=== PATIENT | male | born 1995 | race Caucasian/White ===

== ENCOUNTER 2018-09-20 09:24 | Emergency (ER) | payer BC, OTHER ==
[~2018-09-20] VITALS: Ht 177.8 cm; Wt 77.1 kg
--- OUTSIDE RECORDS SUMMARY | 2018-09-20 09:39 | XMS REPORT ---
Author Author JOEY NICOLAS Organization [facility] Address [address] [place] [address] Care Team Providers Care Mixer Wet Pour Name Role Phone JOEY NICOLAS Unavailable PROBLEMS Unknown Problems ALLERGIES No Known Allergies ENCOUNTERS Encounter Location Date Diagnosis [facility] [address] [facility] [id number] [address] 04 Apr, 2018 Closed nondisplaced fracture of base of fifth metacarpal bone of right hand, initial encounter S62.346A and Closed nondisplaced fracture of base of fourth metacarpal bone of right hand, initial encounter S62.344A [facility] [address] [facility] [address] [id number] [address] Mar, Right hand pain M79.641 and Swelling of right hand M79.89 IMMUNIZATIONS No Known Immunizations SOCIAL HISTORY Never Assessed REASON FOR VISIT fell down outside 8 days ago et had swelling et pain in right hand. also reports his pinky et ring finger hurt on this hand also. [email or web address] PLAN OF CARE Activity Details Follow Up Needs appt with Pollo Ramirez first available in 6 days. Reason: VITAL SIGNS Height 69 in 2018-04-08 Weight 177 lbs 2018-04-08 Temperature 98.9 degrees Fahrenheit 2018-04-08 Heart Rate 88 bpm 2018-04-08 Respiratory Rate 20 2018-04-08 BMI 26.14 kg/m2 2018-04-08 Blood pressure systolic 130 mmHg 2018-04-08 Blood pressure diastolic 80 mmHg 2018-04-08 MEDICATIONS Unknown Medications RESULTS Name Result Date Reference Range Xray : Hand, Right 3 views (IN HOUSE) 2018-04-08 PROCEDURES Procedure Date Ordered Result Body Site X-RAY EXAM OF HAND Apr 08, 2018 INSTRUCTIONS MEDICATIONS ADMINISTERED No Known Medications MEDICAL (GENERAL) HISTORY Type Description Date Surgical History No know Surgical history
[2018-09-20] MEDS ORDERED: ACETAMINOPHEN 500 MG TAB (TYLENOL) PO STA (10:05)
--- NOTE | 2018-09-20 10:41 | ED Cough/URI ---
General Chief Complaint: Cough/Cold/Flu Symptoms Stated Complaint: FEVER, COUGH LIGH HEADED Nursing Triage Note: TO ED COUGH CONGESTION FOR 2 DAYS Sepsis Screen: No Definite Risk Source: patient Exam Limitations: no limitations History of Present Illness Date Seen by Provider: Sep 20, 2018 Time Seen by Provider: 10:20 Initial Comments Here with report of cough and congestion for the last 2 days that is associated with fever. Does have some vomiting after eating but is okay to drink. No sick contacts but has been working in a cold environment. Feels like he may have a little wheeze going on. Timing/Duration: getting worse, other (2 days) Severity/Quality: moderate, dry cough Prior Episodes/Possible Cause: occasional episodes Associated Symptoms: cough, fever/chills, nasal congestion, sore throat, wheezing Allergies and Home Medications Allergies Coded Allergies: No Known Drug Allergies (Unverified , 09/20/18) Patient Home Medication List Home Medication List Reviewed: Yes Review of Systems Review of Systems Constitutional: see HPI, chills, fever EENTM: see HPI Respiratory: see HPI Cardiovascular: no symptoms reported Gastrointestinal: No abdominal pain; vomiting Musculoskeletal: joint pain, muscle pain Skin: no symptoms reported Past Cvtnuhf-Eesrvx-Paajue Hx Past Med/Social Hx: Reviewed Nursing Past Med/Soc Hx Patient Social History Alcohol Use: Denies Use Recreational Drug Use: No Smoking Status: Never a Smoker Recent Foreign Travel: No Contact w/Someone Who Travel: No Recent Infectious Disease Expo: No Past Medical History Surgeries: No Respiratory: No Cardiac: No Neurological: No Genitourinary: No Gastrointestinal: No Musculoskeletal: No Endocrine: No HEENT: No Cancer: No Family Medical History Reviewed Nursing Family Hx No Pertinent Family Hx Physical Exam Vital Signs - First Documented 09/20/18 10:11 Temp 103.1 Pulse 88 Resp 18 B/P (MAP) 121/67 (85) Pulse Ox 98 O2 Delivery Room Air Capillary Refill : Less Than 3 Seconds Height: 5'10.00" Weight: 170lbs. oz. 77.509708el; BMI Method:Stated General Appearance: WD/WN, no apparent distress HEENT: PERRL/EOMI, pharynx normal Neck: full range of motion, supple Respiratory: lungs clear, normal breath sounds Cardiovascular: regular rate, rhythm, no murmur Gastrointestinal: non tender, soft Neurologic/Psychiatric: alert, oriented x 3 Skin: normal color, warm/dry Progress/Results/Core Measures Suspected Sepsis Recent Fever Within 48 Hours: Yes Infection Criteria Present: Suspected New Infection New/Unexplained Altered Menta: No Sepsis Screen: No Definite Risk SIRS Temperature:103.1 Pulse: 88 Respiratory Rate: 18 Blood Pressure 121 /67 Mean: 85 Results/Orders Micro Results Microbiology 09/20/18 Influenza Types A,B Antigen (TED) - Final, Complete My Orders Orders - ULYSSES WORKMAN MD Influenza A And B Antigens (09/20/18 10:05) Acetaminophen Tablet (Tylenol Tablet) (09/20/18 10:05) Vital Signs/I&O 09/20/18 10:11 Temp 103.1 Pulse 88 Resp 18 B/P (MAP) 121/67 (85) Pulse Ox 98 O2 Delivery Room Air Capillary Refill : Less Than 3 Seconds Blood Pressure Mean: 85 Progress Note : Progress Note Seen and evaluated. Influenza screen done. This was positive for influenza a. Patient is 2 days into the illness and outside a window for Tamiflu. Patient would prefer not to do that anyway. We did discuss supportive therapy. He is okay going home. He has requested a work note which I will give. Discharged home with return precautions. Patient verbalize understanding instructions and agreement with plan. Departure Impression Primary Impression: Influenza A Disposition: 01 HOME, SELF-CARE Condition: Stable Departure-Patient Inst. Decision time for Depature: 10:42 Patient Instructions: Flu, Adult (DC) Add. Discharge Instructions: All discharge instructions reviewed with patient and/or family. Voiced understanding. He may take Tylenol/acetaminophen 1000 mg every 8 hours as needed for fever or pain. You may take ibuprofen 800 mg every 8 hours as needed for fever or pain. Drink plenty of fluids when taking small sips frequently. Eat a light diet or foods that you can tolerate and then advance as tolerated. Follow-up with your DrBrian in a few days for recheck. Return for worse pain, fever, vomiting, weakness , breathing problems or other concerns as needed. Work/School Note: Work Release Form Date Seen in the Emergency Department: Sep 20, 2018 Return to Work: Sep 22, 2018 Restrictions: Return-No Fever (24hrs) Other Restrictions Listed Below: May return and fever free for 24 hours ULYSSES WORKMAN MD Sep 20, 2018 10:40
[2018-09-20 10:58] VITALS: BP 121/67
== END 2018-09-20 10:58 | disposition home or self-care (01) ==
LOC: ER 09:31
DX: J10.1 Influenza due to other identified influenza virus with other respiratory manifestations (principal)
CPT/HCPCS: 87804